=== PATIENT | male | born 1960 | race Caucasian/White ===

== ENCOUNTER 2024-07-09 08:22 | Outpatient (CLI) | payer MEDICARE, SELFPAY ==
--- NOTE | 2024-07-09 09:16 | P.ANES_ITS ---
Anesthesia Charges Start Date/Time Anesthesia Start Date: 07/09/24 Anesthesia Start Time: 08:56 Stop Date/Time Anesthesia Stop Date: 07/09/24 Anesthesia Stop Time: 09:15 Coding CPT Codes CPT Codes: ANES LWR INTST SCR COLSC - [id number] ([id number]) P2 - PATIENT W/MILD SYST DISEASE, QK - PACK TRAIN DRIVER 2-4 CNCRNT ANES PROC, QX - CANDLEMAKER SVC W/ MD MED DIRECTION
--- NOTE | 2024-07-09 09:16 | W.ANESCHARGE ---
Anesthesia Charges Start Date/Time Anesthesia Start Date: 07/09/24 Anesthesia Start Time: 08:56 Stop Date/Time Anesthesia Stop Date: 07/09/24 Anesthesia Stop Time: 09:15 Coding CPT Codes CPT Codes: ANES LWR INTST SCR COLSC - [id number] ([id number]) P2 - PATIENT W/MILD SYST DISEASE, QK - GENERAL COUNSEL 2-4 CNCRNT ANES PROC, QX - TOURIST ADVISER SVC W/ MD MED DIRECTION
--- NOTE | 2024-07-09 09:22 | P.ANES_ITS ---
Anesthesia Charges Start Date/Time Anesthesia Start Date: 07/09/24 Anesthesia Start Time: 08:56 Stop Date/Time Anesthesia Stop Date: 07/09/24 Anesthesia Stop Time: 09:15 Coding CPT Codes CPT Codes: ANES LWR INTST SCR COLSC - [id number] ([id number]) P2 - PATIENT W/MILD SYST DISEASE, QK - CERAMIC RESTORER 2-4 CNCRNT ANES PROC, QX - POMOLOGIST SVC W/ MD MED DIRECTION
--- NOTE | 2024-07-09 09:22 | W.ANESCHARGE ---
Anesthesia Charges Start Date/Time Anesthesia Start Date: 07/09/24 Anesthesia Start Time: 08:56 Stop Date/Time Anesthesia Stop Date: 07/09/24 Anesthesia Stop Time: 09:15 Coding CPT Codes CPT Codes: ANES LWR INTST SCR COLSC - [id number] ([id number]) P2 - PATIENT W/MILD SYST DISEASE, QK - CLINIC RECEPTIONIST 2-4 CNCRNT ANES PROC, QX - CRYPTOLOGICAL TECHNICIAN SVC W/ MD MED DIRECTION
== END 2024-07-09 08:23 | disposition home or self-care (01) ==
LOC: OP CLINIC 08:27
PROVIDERS: PCP Family Medicine; Visit Provider Internal Medicine Gastroenterology
DX: Z12.11 Encounter for screening for malignant neoplasm of colon (principal); Z86.0101 Personal history of adenomatous and serrated colon polyps; D12.8 Benign neoplasm of rectum
CPT/HCPCS: 00811; 00812; 45385; J2704